=== PATIENT | female | born 1980 | race Caucasian/White ===

== ENCOUNTER 2018-12-31 19:28 | Emergency (ER) | payer OTHER ==
[~2018-12-31] VITALS: Ht 170.2 cm; Wt 61.2 kg
[2018-12-31 21:14] LABS: Basophils # (auto) 0.1 uL; Basophils % (auto) 0.5 % (0.0-2.0); Eosinophils # (auto) 0.1 uL; Eosinophils % (auto) 0.8 % (0.0-7.0); Hematocrit 35.4 % (36.0-46.0); Hemoglobin 11.6 g/dL (12.2-16.2); Lymphocytes # (auto) 1.6 uL; Lymphocytes % (auto) 14.1 % (10.0-50.0); Mean Corpuscular Hgb Conc. 32.7 g/dL (32.0-36.0); Mean Corpuscular Volume 85.6 fL (80.0-100.0); Monocytes # (auto) 0.6 uL; Monocytes % (auto) 5.2 % (0.0-12.0); Neutrophils # (auto) 8.8 uL; Neutrophils % (auto) 79.4 % (37.0-80.0); Platelet Count (auto) 223 10^3/uL (140-450); Red Blood Cells 4.13 10^6/uL (4.0-5.20); Red Cell Distribution Width 14.8 % (11.8-14.3)
[2018-12-31] MEDS ORDERED: ACETAMINOPHEN 500 MG TAB PO ONE (21:15)
[2018-12-31] MEDS ORDERED: ONDANSETRON HCL 4 MG/2 ML VIAL IV ONE (22:00)
[2018-12-31] MEDS ORDERED: MORPHINE SULFATE 4 MG/ML SYR/VIAL IV ONE (22:00)
[2018-12-31] MEDS ORDERED: IOHEXOL 300 MG/ML 100ML BOTTLE IJ ONE (22:42)
[2018-12-31 22:45] LABS: Urine Bacteria NONE SEEN /hpf (None Seen); Urine Blood Negative /uL (Negative); Urine Specific Gravity 1.014 (1.001-1.035); Urine WBC 2 /hpf (0 - 5)
[2018-12-31 22:54] LABS: Albumin 3.8 g/dL (3.4-5.0); BUN/Creatinine Ratio 12.8; Calcium 8.5 mg/dL (8.5-10.1); Potassium 3.9 mmol/L (3.5-5.1)
[2018-12-31 22:57] LABS: Bilirubin, Total 0.3 mg/dL (0.2-1.0); Total Protein 7.1 g/dL (6.4-8.2)
[2018-12-31 23:23] LABS: INR 1.06 (0.9-1.15); Partial Thromboplastin Time 23.5 sec (23.78-33.04); Prothrombin Time 11.3 sec (9.27-12.13)
[2019-01-01] MEDS ORDERED: LIDOCAINE 1% HCL (LOCAL ANESTH.) INJ 20ML MDV ONE (01:00)
[2019-01-01] MEDS ORDERED: ETOMIDATE (2MG/ML) 20ML VIAL IV ONE ×6 (01:06→01:37)
[2019-01-01] MEDS ORDERED: MORPHINE SULF INJ 2 MG/ML SYRINGE 1ML ONE ×2 (01:29→01:30)
[2019-01-01] MEDS ORDERED: MORPHINE SULFATE 4 MG/ML SYR/VIAL IV ONE ×2 (01:30→03:00)
[2019-01-01] MEDS ORDERED: PROPOFOL 100 ML IV ONE (01:43)
[2019-01-01] MEDS ORDERED: PROPOFOL 10 MG/ML 20 ML IV ONE (01:46)
[2019-01-01] MEDS ORDERED: ALBUTEROL SULF 2.5 MG/0.5ML(0.5%) NEB SOLN ONE (02:00)
[2019-01-01] MEDS ORDERED: IPRATROPIUM BROM 0.5 MG/2.5ML INH SOL ONE (02:01)
[2019-01-01] MEDS ORDERED: fentaNYL CITRATE 100 MCG/2 ML VL ONE (02:02)
[2019-01-01] MEDS ORDERED: cefTRIAXone 1GM/50ML D5W 50 ML IV ONE (02:30)
[2019-01-01] MEDS ORDERED: HYDROmorphone HCL 2 MG/ML VL IV ONE (03:00)
[2019-01-01 03:58] VITALS: BP 130/82
== END 2019-01-01 04:21 | disposition short-term general hospital (02) ==
LOC: EDBD 19:28 → ER 19:28
DX: S22.42XA Multiple fractures of ribs, left side, initial encounter for closed fracture (principal); S27.0XXA Traumatic pneumothorax, initial encounter; R51 Headache; V49.49XA Driver injured in collision with other motor vehicles in traffic accident, initial encounter; Y93.89 Activity, other specified; Y99.8 Other external cause status; Y92.410 Unspecified street and highway as the place of occurrence of the external cause
CPT/HCPCS: 32551; 36415; 70450; 71045; 71270; 72125; 74177; 80053; 81001; 85025; 85610; 85730; 93005; 94640; 96374; 96375; 96376; 99291; J1170; J2001; J2270; J2405; J2704; J3010; J7611; J7644; Q9967; 71250; 71260

== ENCOUNTER 2024-12-06 10:45 | Emergency (ER) | payer OTHER ==
[~2024-12-06] VITALS: Ht 167.6 cm; Wt 82.0 kg
[2024-12-06 11:20] VITALS: BP 159/100; PULSE 139; RESP 18; TEMP 97.8; O2SAT 98
[2024-12-06] MEDS: FAMOTIDINE (10MG/ML) 2ML VL IV ONE (11:31)
[2024-12-06] MEDS: ONDANSETRON HCL 4 MG/2 ML VIAL IV ONE (11:31)
[2024-12-06] MEDS: diphenhdrAMINE HCL 50 MG/1 ML VL IV ONE (11:32)
[2024-12-06] MEDS: methylPREDNISolone SOD SUCC 125 MG/2 ML VL IV ONE (11:32)
--- NOTE | 2024-12-06 12:07 | ED.PDOC ---
HPI Allergic reaction HPI Comments This is a pleasant 44-year-old female with a recent diagnosis of sinusitis that presents for a possible allergic reaction x1 day. Reports she had a tele tele visit with her PCP yesterday and was prescribed Augmentin and reports waking up to scattered hives and an itchy throat Has not taken medications for the symptoms listed above denies this ever happening before Denies that the rash is painful, just itchy Patient denies any fever, cough, difficulty swallowing, or shortness of breath Chief Complaint: Allergic Reaction Time Seen by MD: 10:58 Reviewed Notes: Nurses Notes, Medications, Allergies Allergies: Coded Allergies: Amoxicillin (Verified Allergy, Unknown, 12/06/24) Clavulanic Acid (Verified Allergy, Unknown, 12/06/24) Codeine (Verified Allergy, Unknown, 12/31/18) Information Source: Patient Mode of Arrival: Wheelchair Past Medical History PAST MEDICAL HISTORY: Denies Surgical History: Denies all surgeries FIELD EXAMINER History: Denies all FIELD EXAMINER Hx Family History Family History: Unknown Social History Smoker: Non-Smoker Alcohol: Denies ETOH Use Drugs: Denies Drug Use Lives In: Home All Other Systems: Reviewed and Negative (Per HPI) Physical Exam General Appearance: No Apparent Distress, Normal HEENT: Normal ENT Inspection, Pharynx Normal, TMs Normal Neck: Full Range of Motion, Non-Tender, Normal, Normal Inspection Respiratory: Chest Non-Tender, Lungs Clear, No Accessory Muscle Use, No Respiratory Distress, Normal Breath Sounds Cardiovascular: No Murmur, No Gallop, Regular Rate/Rhythm Breast Exam: Deferred Gastrointestinal: No Organomegaly, Non Tender, No Pulsatile Mass, Normal Bowel Sounds, Soft Genitalia: Deferred Pelvic: Deferred Rectal: Deferred Extremities: No calf tenderness, Normal capillary refill, Normal inspection, Normal range of motion, Non-tender, No pedal edema Musculoskeletal : Apperance: Normal Neurologic: Alert, No Motor Deficits, Normal Affect, Normal Mood, No Sensory Deficits Cerebellar Function: Normal Reflexes: Normal Skin: Dry, Normal Color, Rash (. Hives throughout. No open wounds. No TTP), Warm Lymphatic: No Adenopathy Was a procedure done? Was a procedure done?: No Differential diagnosis (all) Differential Diagnosis: Anaphylaxis, Angioedema, Urticaria X-Ray, Labs, Meds, VS Vital Signs Date Time Temp Pulse Resp B/P (MAP) Pulse Ox O2 Delivery O2 Flow Rate FiO2 3/26/25 11:20 97.8 139 18 159/100 (119) 98 97.8 12/06/24 11:06 97.8 139 18 159/100 (119) 98 97.8 Current Medications Medications (Trade) Dose Ordered Sig/Elvia Route Start Time Stop Time Status Last Admin Diphenhydramine HCl (Benadryl Injection) 25 mg ONCE ONCE IV 12/06/24 11:15 12/06/24 11:16 DC 12/06/24 11:32 Famotidine (Pepcid Injection) 20 mg ONCE ONCE IV 12/06/24 11:15 12/06/24 11:16 DC 12/06/24 11:31 Methylprednisolone Sodium Succinate (Solu Medrol) 125 mg ONCE ONCE IV 12/06/24 11:15 12/06/24 11:16 DC 12/06/24 11:32 Ondansetron HCl (Zofran) 4 mg ONCE ONCE IV 12/06/24 11:15 12/06/24 11:16 DC 12/06/24 11:31 X-Ray, Labs, Meds, VS Comment Pt presents ED for an allergic reaction. Solu-Medrol and Pepcid administered in ED for treatment. Patient reports significant improvement in symptoms following treatment. Patient was monitored in the ED for an extended amount of time. Follow-up with PCP in 1 to 2 days. Return to ED if symptoms persist, or sooner if symptoms worsen On reevaluation, patient had symptomatic improvement. Patient is stable for discharge at this time. External notes reviewed. Test results and diagnostic imaging interpreted. All diagnostic findings, discharge care, education and instructions provided Follow-up with PCP in 2 to 3 days Patient verbalized understanding and agreed to treatment plan Vital signs stable, afebrile, no acute distress noted Patient ambulatory with strong steady gait Advised to return precautions for any new or worsening symptoms, return to ER immediately for re-evaluation Patient is aware that the purpose of this visit was for an acute medical emergency requiring emergent stabilization. Chronic conditions, including malignancies have not been ruled out. Patient is instructed to follow up with PCP as directed and discharge instructions for continued care and workup. If taylor ble to arrange follow-up, patient is to return to the emergency department for reassessment. Patient (parent or legal guardian if applicable) was given verbal and written discharge instructions and acknowledges understanding. Time of 1ST Reevaluation: 12:00 Reevaluation 1ST: Improved Patient Education/Counseling: Diagnosis, Treatment Family Education/Counseling: Diagnosis, Treatment Departure 1 Departure Time of Disposition: 12:06 Impression: Primary Impression: Allergic reaction Qualified Codes: T78.40XA - Allergy, unspecified, initial encounter Disposition: HOME / SELF CARE / HOMELESS Condition: Stable Discharged With: Relative Critical Care Note Critical Care Time?: No Stability Stability form required: No Heart Score Heart Score: Heart Score Response (Comments) Value History N/A 0 EKG N/A 0 Age N/A 0 Risk Factors N/A 0 Troponin N/A 0 Total 0 VICK BENJAMIN NP Dec 06, 2024 12:07
== END 2024-12-06 12:12 | disposition home or self-care (01) ==
LOC: ER 10:51
DX: T78.40XA Allergy, unspecified, initial encounter (principal); Z88.0 Allergy status to penicillin; Z88.5 Allergy status to narcotic agent; Z88.1 Allergy status to other antibiotic agents; X58.XXXA Exposure to other specified factors, initial encounter
CPT/HCPCS: 96374; 96375; 99284; J1200; J2405; J2919; J3490